=== PATIENT | male | born 1945 | race Caucasian/White ===

== ENCOUNTER 2018-08-11 08:46 | Outpatient (CLI) | payer MEDICARE, OTHER ==
--- NOTE | 2018-08-11 11:13 | ULT ---
ULTRASOUND ABDOMEN: Date: 08/11/18 HISTORY: Unspecified abdominal pain, R10.9. COMPARISON: None. TECHNIQUE: Real-time Roberto scale and color Doppler analysis and spectral analysis of the abdomen was performed. FINDINGS: Pancreas is not well seen. The aorta is not well seen. IVC is unremarkable. Liver measures 15.8 cm in length. No mass. Portal vein is patent with antegrade flow. Common bile ajit t measures 5.0 mm. Right kidney measures 12.4 x 6.7 x 6.2 cm. Left kidney measures 12.8 x 6.5 x 5.8 cm. No mass, hydrone phrosis, or abnormal calcifications. Spleen is mildly enlarged, measuring 12.3 cm in length. IMPRESSION: 1. Mild splenomegaly. 2. Incidental note of a prominent vessel in the midline of the abdomen which has a superficial cours e that extends caudally. This is of unknown significance. If clinically warranted, a CT examination m ay be beneficial. This may be a collateral vessel. POS: [facility]
== END 2018-08-11 08:47 | disposition home or self-care (01) ==
LOC: BICULT 08:46
PROVIDERS: ATTEND Internal Medicine Gastroenterology
DX: R10.9 Unspecified abdominal pain (principal); R16.1 Splenomegaly, not elsewhere classified
CPT/HCPCS: 76700

== ENCOUNTER 2018-10-12 13:19 | Day surgery (SDC) | payer MEDICARE, OTHER ==
[2018-10-12 15:00] VITALS: BMI 30.1
[2018-10-12] MEDS ORDERED: Acetaminophen 500 MG TAB PO SCH (15:00)
[2018-10-12] MEDS ORDERED: diphenhydrAMINE 25 MG CAP PO SCH (15:00)
[2018-10-12] MEDS ORDERED: Acetaminophen 500 MG TAB ONE (15:04)
[2018-10-12] MEDS ORDERED: diphenhydrAMINE 25 MG CAP ONE (15:08)
[2018-10-12 19:19] VITALS: BP 110/57; TEMP 98.1
== END 2018-10-12 19:53 | disposition home or self-care (01) ==
LOC: ONC/OP 13:19 → PACU-TCU 13:38 → ONC/OP 19:53
PROVIDERS: ATTEND Internal Medicine Hematology & Oncology
PROC: 30233N1 Transfusion of Nonautologous Red Blood Cells into Peripheral Vein, Percutaneous Approach (ICD-10-PCS; principal; 2018-10-12)
DX: D64.9 Anemia, unspecified (principal); D69.6 Thrombocytopenia, unspecified; Z79.82 Long term (current) use of aspirin; Z79.84 Long term (current) use of oral hypoglycemic drugs; Z79.899 Other long term (current) drug therapy
CPT/HCPCS: 36430; 86850; 86900; 86901; 99211; G0463; P9016